=== PATIENT | female | born 1995 | race Two or more races ===

== ENCOUNTER 2020-09-13 16:01 | Emergency (ER) | payer MEDICAID ==
[~2020-09-13] VITALS: Ht 167.6 cm; Wt 104.3 kg
[2020-09-13 16:10] VITALS: BP 132/89
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
[2020-09-13] MEDS ORDERED: Methocarbamol 500mg tab ORAL ONE (17:00)
[2020-09-13] MEDS ORDERED: IBUPROFEN600 M1 ORAL (17:09)
[2020-09-13] MEDS ORDERED: ROBAXIN-750750 MG PO (17:09)
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
[2020-09-13 17:32] VITALS: BP 128/74
--- NOTE | 2020-09-13 17:32 | NUR ---
ED Nurse Note: Pt cleared by ERPA for discharge. DC instructions/prescription was given and explained to pt and verbalized understanding of teachings. All medical deviecs such as ID band removed. Pt is AAO x4, ambulatory and left with all personal belongings.
== END 2020-09-13 17:32 | disposition home or self-care (01) ==
LOC: EMR 16:30
DX: M62.838 Other muscle spasm (principal); T14.8XXA Other injury of unspecified body region, initial encounter; M79.9 Soft tissue disorder, unspecified; V43.52XA Car driver injured in collision with other type car in traffic accident, initial encounter; Y92.411 Interstate highway as the place of occurrence of the external cause
CPT/HCPCS: 99283